=== PATIENT | male | born 1990 | race Hispanic/Latino ===

== ENCOUNTER 2018-11-15 17:38 | Emergency (ER) | payer OTHER ==
[2018-11-15 18:25] LABS: RAPID GROUP A STREP NEGATIVE (NEGATIVE)
== END 2018-11-15 19:25 | disposition home or self-care (01) ==
LOC: EDH 17:38
DX: J06.9 Acute upper respiratory infection, unspecified (principal); Z72.0 Tobacco use
CPT/HCPCS: 87804; 87880